=== PATIENT | male | born 1985 | race Caucasian/White ===

== ENCOUNTER 2019-03-08 18:37 | Emergency (ER) | payer OTHER ==
[~2019-03-08] VITALS: Ht 182.9 cm; Wt 112.0 kg
[2019-03-08 18:37] VITALS: BP 140/85
[2019-03-08] MEDS ORDERED: POLY2.5S OU (20:52)
[2019-03-08] MEDS ORDERED: POLYTRIM OPTH DROPS 10ML OU ONE (21:00)
== END 2019-03-08 21:11 | disposition home or self-care (01) ==
LOC: M ED 18:37
DX: H10.9 Unspecified conjunctivitis (principal); R07.0 Pain in throat; Z20.89 Contact with and (suspected) exposure to other communicable diseases; Z88.6 Allergy status to analgesic agent